=== PATIENT | female | born 1985 | race Caucasian/White ===

== ENCOUNTER 2019-05-13 16:39 | Emergency (ER) | payer OTHER ==
[~2019-05-13] VITALS: Ht 175.3 cm; Wt 113.6 kg
[2019-05-13 16:55] VITALS: TEMP 98.4
[2019-05-13 17:41] LABS: BASO % 0.2 % (0.0-2.0); EOS % 0.1 % (0-4.0); GRAN # 10.8 (1.4-6.5); GRAN % 86.5 % (42.2-75.2); HEMOGLOBIN 15.2 g/dl (12.5-16.0); LYMPH # 1.3 (1.2-3.4); LYMPH % 10.1 % (20.0-51.0); MEAN CELL VOLUME 83 fl (80.0-100.0); MEAN CORPUSCULAR HEMOGLOBIN 27 pg (27.0-31.0); MEAN CORPUSCULAR HGB CONC 32 g/dl (33.0-37.0); MEAN PLATELET VOLUME 10.2 fl (7.4-10.4); MONO # 0.3 (0.1-0.6); MONO % 2.6 % (1.7-9.3); PLATELET COUNT 310 K/mm3 (130-400); RED BLOOD COUNT 5.66 M/mm3 (4.10-5.30); REDCELL DISTRIBUTION WIDTH-CV 14.7 % (11.5-14.5)
[2019-05-13 17:54] LABS: COLLECTION METHOD CLEAN CATCH
[2019-05-13 17:59] LABS: ALBUMIN 4.6 gm/dL (3.5-5.0); BILIRUBIN,TOTAL 0.4 mg/dL (0.0-1.0); CALCIUM 9.7 mg/dL (8.4-10.2); CREATININE, serum 0.9 (0.52-1.25); POTASSIUM 4.5 mmol/L (3.4-5.0); TOTAL PROTEIN 7.9 gm/dL (6.4-8.2)
[2019-05-13 18:01] LABS: PH 6 (5-8); SQUAMOUS EPITHELIAL 0-2 /hpf; URINE APPEARANCE Clear; URINE BACTERIA Rare /hpf; URINE BILIRUBIN Negative (NEGATIVE); URINE BLOOD 3+ (NEGATIVE); URINE COLOR Straw; URINE GLUCOSE Negative (NEGATIVE); URINE KETONE Negative (NEGATIVE); URINE LEUKOCYTE ESTERASE Negative (NEGATIVE); URINE NITRATE Negative (NEGATIVE); URINE PROTEIN(semi-quant) Negative (NEGATIVE); URINE RBC 0-2 /hpf; URINE UROBILINOGEN Negative (NEGATIVE)
[2019-05-13 20:50] VITALS: BP 138/90; PULSE 83
== END 2019-05-13 20:50 | disposition home or self-care (01) ==
LOC: COL.ER 16:39
PROVIDERS: Physician Assistant
DX: O20.8 Other hemorrhage in early pregnancy (principal); O20.0 Threatened abortion; Z31.83 Encounter for assisted reproductive fertility procedure cycle; Z3A.01 Less than 8 weeks gestation of pregnancy
CPT/HCPCS: J7030

== ENCOUNTER 2019-11-21 08:30 | Outpatient (CLI) | payer OTHER ==
[~2019-11-21] VITALS: Ht 175.3 cm; Wt 132.4 kg
[2019-11-21 08:54] VITALS: BP 133/96; PULSE 108; TEMP 98.3
[2019-11-21] MEDS ORDERED: PRENATAL TABLET PO (09:08)
[2019-11-21] MEDS ORDERED: SYNTHROID0.1 MG/TAB PO (09:09)
[2019-11-21] MEDS ORDERED: [UNRECOGNIZED DRUG - CODE] PO (09:09)
[2019-11-21] MEDS ORDERED: ZYRTEC 10MG10 MG PO (09:10)
[2019-11-21] MEDS ORDERED: ASPIRIN E.C. 8181 MG PO (09:10)
[2019-11-21] MEDS ORDERED: FOLBEE PLUS1 TAB PO (09:11)
[2019-11-21] MEDS ORDERED: GLUCOPHAGE500 MG/TAB PO (09:13)
[2019-11-21] MEDS ORDERED: NOVOLIN N100 U/ML SQ (09:15)
--- NOTE | 2019-11-21 09:22 | NUR ---
OB RN at for monitoring. EKG being obtained at this time also.
[2019-11-21 10:45] VITALS: BP 148/95; PULSE 99
[2019-11-21 11:27] VITALS: BP 135/100; PULSE 116; TEMP 98.6
--- NOTE | 2019-11-21 11:30 | NUR ---
Pt recovered well from procedure, she denies any pain at site to left upper chest. site covered with clean dry gauze dressing. pt verbalized understanding of dc and f/u instructions. Pt did report feeling "shakey" after procedure, however this improved with po intake and position change. Once pt was sitting up she felt much better. she was ambulatory with steady gait to bathroom and at time of discharge I walked with patient to her 's vehicle. Pt denied any concerns at time of departure.
== END 2019-11-21 11:40 | disposition home or self-care (01) ==
LOC: COL.CAR 08:30
DX: R55 Syncope and collapse (principal); F32.9 Major depressive disorder, single episode, unspecified; E06.3 Autoimmune thyroiditis; E28.2 Polycystic ovarian syndrome; J30.2 Other seasonal allergic rhinitis; G47.33 Obstructive sleep apnea (adult) (pediatric); Z90.49 Acquired absence of other specified parts of digestive tract; Z88.1 Allergy status to other antibiotic agents; Z79.82 Long term (current) use of aspirin; Z80.8 Family history of malignant neoplasm of other organs or systems